=== PATIENT | female | born 1995 | race Caucasian/White ===

== ENCOUNTER 2017-01-10 02:07 | Emergency (ER) | payer MEDICAID ==
[~2017-01-10] VITALS: Ht 162.6 cm; Wt 72.6 kg
[2017-01-10 02:10] VITALS: BP 159/91; PULSE 84; RESP 16; TEMP 97.2; O2SAT 98
--- NOTE | 2017-01-10 02:12 | NUR ---
Esau gleason in ED - 01/10/17 at 0232 by MEY BENJY Dietz at [facility] for evaluation
--- NOTE | 2017-01-10 02:15 | NUR ---
Patient to ER bed 8 to gown for evaluation. Side rails up. Report given to Deonte.
--- NOTE | 2017-01-10 02:20 | NUR ---
Patient to ER C/O severe left ear pain 06/17 and "like i have water in my left ear" Patient states that her daughter and significant other just recovered from ear infection and last night about 10 pm her left ear started to hurt. No drainage, denies sore throat, afebrile. AAOx4, unlabored breathing, no signs of acute distress.
--- NOTE | 2017-01-10 02:22 | NUR ---
ER MD Dietz at bedside for evaluation
[2017-01-10 02:40] VITALS: BP 121/74; PULSE 82; RESP 16; TEMP 97.9; O2SAT 98
--- NOTE | 2017-01-10 02:40 | NUR ---
Patient given written and verbal discharge instructions and verbalizes understanding. ER MD Dietz discussed with patient the results and treatment provided. Patient in stable condition. ID arm band removed. Rx of tylenol/codeine given. Patient educated on pain management and to follow up with PMD. Pain Scale 2/10. Opportunity for questions provided and answered.
== END 2017-01-10 02:40 | disposition home or self-care (01) ==
LOC: SED 02:07
DX: H92.02 Otalgia, left ear (principal); I10 Essential (primary) hypertension
CPT/HCPCS: 99283